=== PATIENT | female | born 1995 | race African-American/Black ===

== ENCOUNTER 2020-10-20 08:46 | Emergency (ER) | payer MEDICAID ==
[~2020-10-20 08:46] MED LIST: MACROBID 1100 MG/CAP PO
[2020-10-20] MEDS ORDERED: VYVANSE30 MG PO (09:15)
[2020-10-20] MEDS ORDERED: SERTRALINE50 MG PO (09:16)
[2020-10-20] MEDS ORDERED: ATIVAN0.5 MG PO (09:16)
[2020-10-20 10:43] LABS: HEMATOCRIT 36.2 % (37.0-47.0); HEMOGLOBIN 12.2 g/dL (12.5-16.0); MEAN CELL VOLUME 80 fl (78-100); MEAN CORPUSCULAR HEMOGLOBIN 27 pg (27-31); MEAN CORPUSCULAR HGB CONC 34 g/dL (33-37); MEAN PLATELET VOLUME 8.7 fl (7.4-10.4); PLATELET COUNT 233 K/mm3 (130-400); RED BLOOD COUNT 4.53 M/mm3 (4.10-5.30); RED CELL DISTRIBUTION WIDTH 14.5 % (11.5-14.5); WHITE BLOOD COUNT 3.3 K/mm3 (4.8-10.8)
[2020-10-20 10:53] LABS: ALBUMIN 3.6 g/dL (3.5-5.0); LYMPHOCYTE 19 % (20-51); MONOCYTE 18 % (3-10); NEUTROPHILS 63 % (42-75); POTASSIUM 3.8 mmol/L (3.5-5.1)
[2020-10-20 10:54] LABS: CALCIUM 8.4 mg/dL (8.3-10.5)
[2020-10-20 10:55] LABS: TOTAL PROTEIN 6.9 g/dL (6.4-8.3)
[2020-10-20 10:57] LABS: TOTAL BILIRUBIN 0.2 mg/dL (0.2-1.2)
[2020-10-20 11:21] LABS: URINE APPEARANCE CLEAR; URINE BILIRUBIN NEGATIVE (NEGATIVE); URINE BLOOD NEGATIVE (NEGATIVE); URINE COLOR YELLOW; URINE GLUCOSE NEGATIVE (NEGATIVE); URINE KETONE NEGATIVE (NEGATIVE); URINE LEUKOCYTE ESTERASE NEGATIVE (NEGATIVE); URINE NITRATE NEGATIVE (NEGATIVE); URINE PROTEIN(semi-quant) NEGATIVE (NEGATIVE); URINE UROBILINOGEN NORMAL (NORMAL)
[2020-10-20 12:39] VITALS: BP 135/60
== END 2020-10-20 12:39 | disposition home or self-care (01) ==
LOC: ED 08:46
PROVIDERS: Family Medicine
DX: O98.511 Other viral diseases complicating pregnancy, first trimester (principal); F90.9 Attention-deficit hyperactivity disorder, unspecified type; F41.9 Anxiety disorder, unspecified; F32.9 Major depressive disorder, single episode, unspecified; Z3A.00 Weeks of gestation of pregnancy not specified; Z79.899 Other long term (current) drug therapy

== ENCOUNTER 2020-10-26 16:30 | Emergency (ER) | payer MEDICAID ==
[~2020-10-26 16:30] MED LIST changes: +ATIVAN0.5 MG PO; +SERTRALINE50 MG PO; +VYVANSE30 MG PO
[2020-10-26 18:10] LABS: BASO # 0.02 (0.02-0.10); EOS # 0.02 (0.04-0.40); EOS % 0.5 % (1.0-5.0); HEMATOCRIT 36.7 % (37.0-47.0); HEMOGLOBIN 12.4 g/dL (12.5-16.0); LYMPH# 1.42 (1.50-4.00); MEAN CELL VOLUME 80 fl (78-100); MEAN CORPUSCULAR HEMOGLOBIN 27 pg (27-31); MEAN CORPUSCULAR HGB CONC 34 g/dL (33-37); MEAN PLATELET VOLUME 9.3 fl (7.4-10.4); MONO # 0.24 (0.20-0.80); NEU # 2.63 (1.40-6.50); PLATELET COUNT 224 K/mm3 (130-400); RED BLOOD COUNT 4.57 M/mm3 (4.10-5.30); RED CELL DISTRIBUTION WIDTH 14.1 % (11.5-14.5); WHITE BLOOD COUNT 4.3 K/mm3 (4.8-10.8)
[2020-10-26 19:29] VITALS: BP 139/81
== END 2020-10-26 19:29 | disposition home or self-care (01) ==
LOC: ED 16:30
PROVIDERS: Family Medicine
DX: O26.891 Other specified pregnancy related conditions, first trimester (principal); M54.5 Low back pain; R10.31 Right lower quadrant pain; M79.651 Pain in right thigh; O46.91 Antepartum hemorrhage, unspecified, first trimester; Z3A.01 Less than 8 weeks gestation of pregnancy

== ENCOUNTER 2020-11-10 15:30 | Emergency (ER) | payer MEDICAID ==
[2020-11-10 17:18] LABS: BASO # 0.02 (0.02-0.10); EOS # 0.05 (0.04-0.40); EOS % 0.5 % (1.0-5.0); HEMATOCRIT 35.1 % (37.0-47.0); HEMOGLOBIN 11.9 g/dL (12.5-16.0); MEAN CELL VOLUME 81 fl (78-100); MEAN CORPUSCULAR HEMOGLOBIN 27 pg (27-31); MEAN CORPUSCULAR HGB CONC 34 g/dL (33-37); MEAN PLATELET VOLUME 8.7 fl (7.4-10.4); MONO # 0.61 (0.20-0.80); NEU # 8.33 (1.40-6.50); PLATELET COUNT 327 K/mm3 (130-400); RED BLOOD COUNT 4.36 M/mm3 (4.10-5.30); RED CELL DISTRIBUTION WIDTH 13.8 % (11.5-14.5); WHITE BLOOD COUNT 9.9 K/mm3 (4.8-10.8)
[2020-11-10 17:23] LABS: URINE APPEARANCE CLOUDY; URINE BILIRUBIN NEGATIVE (NEGATIVE); URINE BLOOD NEGATIVE (NEGATIVE); URINE COLOR YELLOW; URINE GLUCOSE NEGATIVE (NEGATIVE); URINE KETONE NEGATIVE (NEGATIVE); URINE LEUKOCYTE ESTERASE TRACE (NEGATIVE); URINE NITRATE NEGATIVE (NEGATIVE); URINE PROTEIN(semi-quant) TRACE mg/dL (NEGATIVE); URINE UROBILINOGEN NORMAL (NORMAL)
[2020-11-10] MEDS ORDERED: PREDNISONE20 M1 PO (17:48)
[2020-11-10] MEDS ORDERED: CETIRIZINE HCL10 MG PO (17:49)
[2020-11-10 18:33] VITALS: BP 121/74
== END 2020-11-10 17:45 | disposition home or self-care (01) ==
LOC: ED 15:30
PROVIDERS: Family Medicine
DX: O02.0 Blighted ovum and nonhydatidiform mole (principal); O26.899 Other specified pregnancy related conditions, unspecified trimester; M54.5 Low back pain; L50.9 Urticaria, unspecified; Z3A.00 Weeks of gestation of pregnancy not specified

== ENCOUNTER → 2021-07-07 | Outpatient (CLI) | payer MEDICAID ==
[~2021-07-07] MED LIST changes: +CETIRIZINE HCL10 MG PO; +PREDNISONE20 M1 PO
[2021-07-07 18:11] LABS: BASO # 0.03 K/mm3 (0.02-0.10); EOS # 0.05 K/mm3 (0.04-0.40); EOS % 0.4 % (1.0-5.0); HEMOGLOBIN 13.2 g/dL (12.5-16.0); LYMPH# 2.66 K/mm3 (1.50-4.00); MEAN CELL VOLUME 80 fl (78-100); MEAN CORPUSCULAR HEMOGLOBIN 27 pg (27-31); MEAN CORPUSCULAR HGB CONC 34 g/dL (33-37); MEAN PLATELET VOLUME 8.9 fl (7.4-10.4); MONO # 0.46 K/mm3 (0.20-0.80); NEU # 8.69 K/mm3 (1.40-6.50); PLATELET COUNT 341 K/mm3 (130-400); RED BLOOD COUNT 4.88 M/mm3 (4.10-5.30); WHITE BLOOD COUNT 11.9 K/mm3 (4.8-10.8)
[2021-07-07 18:20] LABS: ALBUMIN 4.1 g/dL (3.5-5.0); POTASSIUM 4.1 mmol/L (3.5-5.1); URINE APPEARANCE CLEAR; URINE BILIRUBIN NEGATIVE (NEGATIVE); URINE BLOOD 50 ery/uL (NEGATIVE); URINE COLOR YELLOW; URINE GLUCOSE NEGATIVE (NEGATIVE); URINE KETONE NEGATIVE (NEGATIVE); URINE LEUKOCYTE ESTERASE NEGATIVE (NEGATIVE); URINE MUCUS PRESENT (NOT PRESENT); URINE NITRATE NEGATIVE (NEGATIVE); URINE PROTEIN(semi-quant) TRACE (NEGATIVE); URINE UROBILINOGEN NORMAL (NORMAL)
[2021-07-07 18:21] LABS: CLUE CELLS NOT OBSERVED (Not Observd)
[2021-07-07 18:22] LABS: CALCIUM 9.4 mg/dL (8.3-10.5)
[2021-07-07 18:23] LABS: TOTAL PROTEIN 8.3 g/dL (6.4-8.3)
[2021-07-07 18:25] LABS: TOTAL BILIRUBIN 0.2 mg/dL (0.2-1.2)
== END ==
LOC: LAB 17:53
PROVIDERS: Nurse Practitioner Family
DX: M54.50 Low back pain, unspecified (principal); R10.2 Pelvic and perineal pain; R10.9 Unspecified abdominal pain
CPT/HCPCS: Q0111

== ENCOUNTER → 2021-07-08 | Outpatient (CLI) | payer MEDICAID | LOC: RAD 07:14 | DX: R10.31 Right lower quadrant pain (principal); R10.2 Pelvic and perineal pain ==

== ENCOUNTER → 2021-09-22 | Outpatient (CLI) | payer MEDICAID ==
[2021-09-22 12:27] LABS: BASO # 0.03 K/mm3 (0.02-0.10); EOS # 0.07 K/mm3 (0.04-0.40); EOS % 0.8 % (1.0-5.0); HEMATOCRIT 40.8 % (37.0-47.0); HEMOGLOBIN 13.7 g/dL (12.5-16.0); LYMPH# 1.65 K/mm3 (1.50-4.00); MEAN CELL VOLUME 80 fl (78-100); MEAN CORPUSCULAR HEMOGLOBIN 27 pg (27-31); MEAN CORPUSCULAR HGB CONC 34 g/dL (33-37); MEAN PLATELET VOLUME 8.9 fl (7.4-10.4); MONO # 0.37 K/mm3 (0.20-0.80); NEU # 6.26 K/mm3 (1.40-6.50); PLATELET COUNT 309 K/mm3 (130-400); RED BLOOD COUNT 5.12 M/mm3 (4.10-5.30); RED CELL DISTRIBUTION WIDTH 13.6 % (11.5-14.5); WHITE BLOOD COUNT 8.4 K/mm3 (4.8-10.8)
[2021-09-22 12:38] LABS: POTASSIUM 4.3 mmol/L (3.5-5.1)
[2021-09-22 12:39] LABS: CALCIUM 9.8 mg/dL (8.3-10.5)
[2021-09-22 12:42] LABS: TOTAL BILIRUBIN 0.2 mg/dL (0.2-1.2)
== END ==
LOC: LAB 12:12
PROVIDERS: Nurse Practitioner Family
DX: J02.9 Acute pharyngitis, unspecified (principal); R59.0 Localized enlarged lymph nodes; Z87.09 Personal history of other diseases of the respiratory system

== ENCOUNTER 2023-05-25 09:26 | Emergency (ER) | payer MEDICAID ==
[~2023-05-25] VITALS: Ht 162.6 cm; Wt 126.4 kg
[~2023-05-25 09:26] MED LIST changes: +ABILIFY5 MG PO; +BRINTELLIX10 MG PO; +BRINTELLIX20 MG PO; +BUSPIRONE HYDRO10 MG PO; +BUSPIRONE5 MG PO; +CYCLOBENZAPRINE10 M1 PO; +DESYREL50 MG PO; +HYDROXYZINE HCL25 M1 PO; +METHYLPHENIDATE54 M1 PO; +METRONIDAZOLE500 M1 PO; +MINIPRESS 1M1 MG/CAP PO; +NIKKI1 TAB PO; +NORCO 325 MG-51 TA1 PO; +TIZANIDINE HYDRO4 M1 PO
[2023-05-25 11:57] LABS: BASO # 0.02 K/mm3 (0.02-0.10); EOS # 0.05 K/mm3 (0.04-0.40); EOS % 0.6 % (1.0-5.0); HEMATOCRIT 38.8 % (37.0-47.0); HEMOGLOBIN 13.1 g/dL (12.5-16.0); LYMPH# 2.17 K/mm3 (1.50-4.00); MEAN CELL VOLUME 79 fl (78-100); MEAN CORPUSCULAR HEMOGLOBIN 27 pg (27-31); MEAN CORPUSCULAR HGB CONC 34 g/dL (33-37); MEAN PLATELET VOLUME 8.6 fl (7.4-10.4); MONO # 0.29 K/mm3 (0.20-0.80); NEU # 5.32 K/mm3 (1.40-6.50); PLATELET COUNT 315 K/mm3 (130-400); RED BLOOD COUNT 4.92 M/mm3 (4.10-5.30); RED CELL DISTRIBUTION WIDTH 13.6 % (11.5-14.5); WHITE BLOOD COUNT 7.9 K/mm3 (4.8-10.8)
[2023-05-25 12:07] LABS: ALBUMIN 3.8 g/dL (3.5-5.0); SODIUM 141 mmol/L (136-145)
[2023-05-25 12:08] LABS: CALCIUM 9.3 mg/dL (8.3-10.5)
[2023-05-25 12:10] LABS: GLUCOSE 92 mg/dL (65-105); TOTAL PROTEIN 7.7 g/dL (6.4-8.3)
[2023-05-25 12:11] LABS: CARBON DIOXIDE 22 mmol/L (22-29); TOTAL BILIRUBIN 0.2 mg/dL (0.2-1.2)
[2023-05-25 12:15] LABS: AST-SGOT 17 U/L (5-34)
[2023-05-25 12:16] LABS: ALT/SGPT 25 U/L (0-55)
[2023-05-25 12:23] LABS: TROPONIN-I < 0.030 ng/mL (0.00-0.033)
[2023-05-25 13:12] VITALS: BP 130/78
== END 2023-05-25 13:13 | disposition home or self-care (01) ==
LOC: ED 09:26
PROVIDERS: Nurse Practitioner Family
DX: F90.9 Attention-deficit hyperactivity disorder, unspecified type (principal); R00.2 Palpitations; Z86.59 Personal history of other mental and behavioral disorders

== ENCOUNTER → 2023-06-09 | Outpatient (CLI) | payer MEDICAID | LOC: AMSURD 14:59 | DX: R00.2 Palpitations (principal) ==

== ENCOUNTER → 2024-03-29 | Outpatient (CLI) | payer MEDICAID | LOC: RAD 10:37 | DX: M54.16 Radiculopathy, lumbar region (principal); M79.671 Pain in right foot ==

== ENCOUNTER → 2024-04-25 | Outpatient (CLI) | payer MEDICAID | LOC: LAB 14:15 | DX: L72.3 Sebaceous cyst (principal) ==